=== PATIENT | male | born 1980 | race Asian ===

== ENCOUNTER 2024-11-11 09:43 | Outpatient (RCR) | payer MEDICAID, SELFPAY ==
--- NOTE | 2024-11-11 12:48 | CTCCONSULT_ITS ---
Patient: NUNU LAURENT : 1980 MR#: [id number] Page 2 of 2 CONSULTATION NOTE DATE OF CONSULTATION: 11/11/2024 NAME: NUNU LAURENT ACCOUNT: [id number] : 1980 AGE: 43 REFERRING PHYSICIAN: Roe Palomino MD PRIMARY PHYSICIAN: REASON FOR VISIT: Establish care HISTORY OF PRESENT ILLNESS: 43-year-old male with a history of beta thalassemia diagnosis here for follow-up establish care. 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 Tobacco?Use:?DENIES ETOH?Use:?DENIES Drug?Note:?DENIES Social History Note:?LIVES WITH AND KIDS MEDICATIONS: 1. atorvastatin - 40 mg 1 tab Daily Medications Never Reconciled ALLERGIES: No Known Allergies REVIEW OF SYSTEMS: A complete 14-point review of systems was performed and is negative except as noted in interval history. PHYSICAL EXAMINATION: VITAL SIGNS: Temperature?98.7, B/P?113/77, Height?61?inches, Oxygen?Saturation?96% Weight?122?lbs PAIN: 0 - No pain ECOG Performance Status: 0 - Asymptomatic and fully active GENERAL APPEARANCE: Appears well, in no apparent distress, appropriately interactive. HEENT: Normocephalic, no temporal wasting, normal conjunctiva, no scleral icterus, normal hearing, lips without lesions, neck normal range of motion. CARDIOVASCULAR: Not assessed. PULMONARY: Normal respiratory effort, no respiratory distress or use of accessory muscles, speaking in full sentences, no tachypnea. EXTREMITIES: No pedal edema or cyanosis. SKIN: Normal skin appearance. NEUROLOGIC: Alert and oriented x4. PSHYCHIATRIC: Appropriate affect, mood normal, behavior normal, intact thought and speech. LABORATORY DATA: I have personally reviewed and interpreted each of Mr. Laurent?s relevant lab tests, abnormal findings are below: Date ASSESSMENT/PLAN: Microcytic mild anemia Patient have microcytosis Will check for iron and ferritin B12 folic acid LDH haptoglobin Will do hemoglobin extra pheresis as I do not have report available Patient likely have beta thalassemia and is asymptomatic I would like to follow-up on the labs Will review labs. CBC CMP B12 ferritin folic acid iron level LDH and haptoglobin RETURN TO CLINIC: 2 weeks BILLING AND COMPLIANCE: I reviewed external records from providers outside my specialty as summarized above. I spent a total of 50 minutes on this patient?s care on the day of their visit excluding time spent related to any billed procedures. This time includes time spent with the patient as well as time spent documenting in the medical record, reviewing patients records and tests, obtaining history, placing orders, communicating with other healthcare professionals, counseling the patient, family or caregiver, and/or care coordination for the diagnoses above. Electronically Signed by: Roe Palomino MD T: 12:45 PM CC: PCP: Referring: Roe Palomino This document was completed utilizing speech recognition software. Grammatical errors, random word insertions, pronoun errors, and incomplete sentences are an occasional consequence of this system due to software limitations, ambient noise, and hardware issues. Any formal questions or concerns about the content, text or information contained within the body of this dictation should be directly addressed to the provider for clarification.
== END 2024-11-21 23:59 | disposition home or self-care (01) ==
LOC: SCTC 09:43
PROVIDERS: PCP Physician Assistant; Referring Provider Internal Medicine Hematology & Oncology; Visit Provider Internal Medicine Hematology & Oncology
DX: D50.9 Iron deficiency anemia, unspecified (principal)
CPT/HCPCS: 99213; G0463

== ENCOUNTER 2024-12-01 11:09 | Outpatient (RCR) | payer MEDICAID, SELFPAY | END 2024-12-22 23:59 | disposition home or self-care (01) | LOC: SCTC 11:09 | PROVIDERS: PCP Physician Assistant; Referring Provider Physician Assistant; Visit Provider Nurse Practitioner Family | DX: D56.1 Beta thalassemia (principal); D50.9 Iron deficiency anemia, unspecified | CPT/HCPCS: 99212; G0463 ==

== ENCOUNTER 2024-12-23 16:07 | Outpatient (RCR) | payer MEDICAID, SELFPAY | END 2025-01-21 23:59 | disposition home or self-care (01) | LOC: SCTC 16:07 | PROVIDERS: PCP Physician Assistant; Referring Provider Physician Assistant; Visit Provider Internal Medicine Hematology & Oncology | DX: Z02.1 Encounter for pre-employment examination (principal); D56.1 Beta thalassemia | CPT/HCPCS: 99212; G0463 ==